=== PATIENT | male | born 1980 | race Caucasian/White ===

== ENCOUNTER → 2018-04-24 | Outpatient (CLI) | payer OTHER ==
[~2018-04-24] MED LIST: NO HOME MEDICATIONS
== END ==
LOC: COL.LAB 11:27
DX: Z00.00 Encounter for general adult medical examination without abnormal findings (principal)

== ENCOUNTER → 2019-12-05 | Outpatient (CLI) | payer OTHER | LOC: ZCOL.LAB 15:10 | DX: J02.9 Acute pharyngitis, unspecified (principal); R51 Headache; Z20.828 Contact with and (suspected) exposure to other viral communicable diseases ==